=== PATIENT | female | born 1995 | race Caucasian/White ===

== ENCOUNTER 2023-12-03 10:46 | Emergency (ER) | payer OTHER ==
[~2023-12-03] VITALS: Ht 172.7 cm; Wt 205.2 kg
[2023-12-03] MEDS ORDERED: KETOROLAC 30 MG/ML 1ML VIAL IV ONE (13:15)
[2023-12-03 13:28] LABS: BASO % 0.3 % (0.0-1.0); EOS # 0.3 10^3/uL (0.0-0.5); EOS % 2.6 % (0.0-3.0); HEMATOCRIT 43.1 % (36.0-47.0); HEMOGLOBIN 14.1 g/dl (12.0-15.5); LYMPH # 2.1 10^3/uL (1.5-5.0); LYMPH % 19.9 % (24.0-44.0); MEAN CORPUSCULAR HEMOGLOBIN 29.6 pg (27.0-33.0); MEAN CORPUSCULAR HGB CONC 32.7 g/dl (32.0-36.5); MEAN CORPUSCULAR VOLUME 90.4 fl (80.0-96.0); MONO # 0.7 10^3/uL (0.0-0.8); MONO % 6.8 % (2.0-8.0); NEUTROPHILS # 7.5 10^3/uL (1.5-8.5); NEUTROPHILS % 70.1 % (36.0-66.0); PLATELET COUNT, AUTOMATED 262 10^3/uL (150-450); RED BLOOD COUNT 4.77 10^6/uL (4.00-5.40); WHITE BLOOD COUNT 10.7 10^3/uL (4.0-10.0)
[2023-12-03 13:45] LABS: ERYTHROCYTE SEDIMENTATION RATE 69 mm/hr (0-20)
[2023-12-03 14:00] LABS: BLOOD UREA NITROGEN 8 MG/DL (9-23); CALCIUM LEVEL 8.4 MG/DL (8.5-10.1); CARBON DIOXIDE LEVEL 32 MMOL/L (20-31); CHLORIDE LEVEL 104 MMOL/L (98-107); GLOMERULAR FILTRATION RATE > 60.0 (>60); GLUCOSE, FASTING 93 MG/DL (60-100); SODIUM LEVEL 138 MMOL/L (136-145)
[2023-12-03 14:05] LABS: HCG, SERUM QUALITATIVE NEGATIVE (NEGATIVE)
[2023-12-03] MEDS ORDERED: CLINDAMYCIN 600 MG in IV 1 EA IV ONE (15:55)
[2023-12-03 17:16] LABS: RSV AMPLIFICATION NEGATIVE (NEGATIVE)
[2023-12-03 17:28] VITALS: BP 141/89; TEMP 96; O2SAT 95
== END 2023-12-03 17:36 | disposition short-term general hospital (02) ==
LOC: M ED 10:46
DX: N61.1 Abscess of the breast and nipple (principal)
CPT/HCPCS: 76642; 80048; 83605; 84703; 85025; 85652; 86140; 87040; 87631; 96365; 96375; 99284; J0737; J1885

== ENCOUNTER 2024-05-01 11:28 | Emergency (ER) | payer MEDICAID, OTHER, SELFPAY ==
[~2024-05-01] VITALS: Ht 172.7 cm; Wt 208.3 kg
[2024-05-01] MEDS: IBUPROFEN 600MG TAB PO ONE (16:16)
[2024-05-01] MEDS ORDERED: IBUP-1022 PO (16:19)
[2024-05-01 16:20] VITALS: BP 144/72; TEMP 96.9; O2SAT 97
== END 2024-05-01 16:37 | disposition home or self-care (01) ==
LOC: M ED 11:28
DX: S83.92XA Sprain of unspecified site of left knee, initial encounter (principal); Y92.9 Unspecified place or not applicable; Y93.9 Activity, unspecified; Y99.9 Unspecified external cause status; F17.210 Nicotine dependence, cigarettes, uncomplicated; Z79.1 Long term (current) use of non-steroidal anti-inflammatories (NSAID)

== ENCOUNTER 2024-08-07 04:09 | Inpatient (IN) | payer MEDICAID, OTHER ==
[~2024-08-07] VITALS: Ht 172.7 cm; Wt 166.9 kg
[~2024-08-07 04:09] MED LIST: IBUP-1022 PO
[2024-08-07 05:50] LABS: BASO % 0.2 % (0.0-1.0); EOS # 0.2 10^3/uL (0.0-0.5); EOS % 1.7 % (0.0-3.0); HEMOGLOBIN 13.8 g/dl (12.0-15.5); LYMPH # 1.4 10^3/uL (1.5-5.0); MEAN CORPUSCULAR HEMOGLOBIN 29.4 pg (27.0-33.0); MEAN CORPUSCULAR HGB CONC 32.1 g/dl (32.0-36.5); MEAN CORPUSCULAR VOLUME 91.7 fl (80.0-96.0); MONO # 1.1 10^3/uL (0.0-0.8); MONO % 10.7 % (2.0-8.0); NEUTROPHILS # 7.7 10^3/uL (1.5-8.5); NEUTROPHILS % 73.8 % (36.0-66.0); PLATELET COUNT, AUTOMATED 253 10^3/uL (150-450); RED BLOOD COUNT 4.69 10^6/uL (4.00-5.40); WHITE BLOOD COUNT 10.4 10^3/uL (4.0-10.0)
[2024-08-07 06:20] LABS: BLOOD UREA NITROGEN 6 MG/DL (9-23); CALCIUM LEVEL 8.1 MG/DL (8.5-10.1); CARBON DIOXIDE LEVEL 30 MMOL/L (20-31); CHLORIDE LEVEL 105 MMOL/L (98-107); CREATININE FOR GFR 0.49 MG/DL (0.55-1.30); GLOMERULAR FILTRATION RATE > 60.0 (>60); GLUCOSE, FASTING 104 MG/DL (60-100); POTASSIUM SERUM 4.5 MMOL/L (3.5-5.1); SODIUM LEVEL 138 MMOL/L (136-145)
[2024-08-07 06:27] LABS: PROCALCITONIN <0.04 ng/ml
[2024-08-07] MEDS: PIPERACILLIN/TAZOBACTAM SOD 4.5 GM in D5W MINI-BAG PLUS 50 ML IV ONE (06:40)
[2024-08-07] MEDS ORDERED: IBUP1TAB6 PO (07:34)
[2024-08-07] MEDS ORDERED: HOME MED LIST COMPLETE! XX SCH (07:35)
[2024-08-07] MEDS: VANCOMYCIN/WATER FOR INJ (PEG) 2,000 MG in IV 1 EA IV ONE (07:45)
[2024-08-07 07:55] LABS: ERYTHROCYTE SEDIMENTATION RATE 28 mm/hr (0-20)
[2024-08-07] MEDS: ACETAMINOPHEN TAB 650MG DOSE (2X325MG) PO PRN (08:33)
[2024-08-07 11:17] VITALS: BP 174/96; TEMP 98.6; O2SAT 95
[2024-08-07] MEDS ORDERED: VANCOMYCIN 1,250 MG/250 ML IV BAG IV SCH (12:00)
[2024-08-07] MEDS ORDERED: DOXY-440 PO (12:23)
[2024-08-07] MEDS ORDERED: CEFD1CAP9 PO (12:23)
[2024-08-07] MEDS ORDERED: PIPERACILLIN/TAZOBACTAM SOD 3.375 GM in D5W MINI-BAG PLUS 50 ML IV SCH (13:00)
== END 2024-08-07 11:17 | disposition left against medical advice (07) | DRG 383 ==
LOC: M ED 04:09 → M ED INP 07:42
PROVIDERS: ADMIT Hospitalist; ATTEND Hospitalist
DX: L03.116 Cellulitis of left lower limb (principal); F17.200 Nicotine dependence, unspecified, uncomplicated